=== PATIENT | female | born 1985 | race Caucasian/White ===

== ENCOUNTER → 2017-07-04 | Outpatient (CLI) | payer BC | END | disposition home or self-care (01) | LOC: C.PAPS 11:00 | PROVIDERS: ATTEND Nurse Practitioner | DX: Z01.419 Encounter for gynecological examination (general) (routine) without abnormal findings (principal) ==

== ENCOUNTER → 2017-07-20 | Outpatient (CLI) | payer BC ==
[2017-07-20 17:45] LABS: ALKALINE PHOSPHATASE 63 U/L (45-117); ALT/SGPT 64 U/L (12-78); BLOOD UREA NITROGEN 13 mg/dl (7-18); BUN/CREATININE RATIO 16.4 (10-20); CALCIUM 8.5 mg/dl (8.5-10.1); CARBON DIOXIDE 26 mmol/L (21-32); CHLORIDE 106 mmol/L (98-107); CHOLESTEROL 130 mg/dl (0-200); CHOLESTEROL/HDL RATIO 3.1; CREATININE 0.77 mg/dl (0.60-1.20); GLUCOSE 87 mg/dl (70-99); HDL CHOLESTEROL 42 mg/dl; LDL CHOLESTEROL CALCULATED 55 mg/dl; POTASSIUM 3.5 mmol/L (3.5-5.1); SODIUM 137 mmol/L (136-145); TRIGLYCERIDES 165 mg/dl (0-150); VERY LOW DENSITY LIPOPROT CALC 33 mg/dl
[2017-07-20 17:52] LABS: AST/SGOT 33 U/L (15-37)
== END | disposition home or self-care (01) ==
LOC: C.LABBFT 11:18
PROVIDERS: ATTEND Nurse Practitioner
DX: Z13.6 Encounter for screening for cardiovascular disorders (principal); E66.9 Obesity, unspecified